=== PATIENT | female | born 1995 | race Caucasian/White ===

== ENCOUNTER 2019-06-26 10:06 | Emergency (ER) | payer MEDICAID, OTHER ==
[~2019-06-26] VITALS: Ht 180.3 cm; Wt 95.3 kg
[2019-06-26 10:10] VITALS: BP_SYST 116
[2019-06-26 12:08] VITALS: BP_SYST 116
== END 2019-06-26 12:08 | disposition home or self-care (01) ==
LOC: SED 10:06
DX: S82.001A Unspecified fracture of right patella, initial encounter for closed fracture (principal); V86.56XA Driver of dirt bike or motor/cross bike injured in nontraffic accident, initial encounter; Y93.89 Activity, other specified; Y92.89 Other specified places as the place of occurrence of the external cause; Y99.8 Other external cause status
CPT/HCPCS: 73564; 99283

== ENCOUNTER 2021-03-26 14:17 | Emergency (ER) | payer MEDICAID ==
[~2021-03-26] VITALS: Ht 172.7 cm; Wt 95.3 kg
[2021-03-26 14:38] VITALS: BP_SYST 141
[2021-03-26] MEDS ORDERED: ACET325T53 PO (16:02)
[2021-03-26] MEDS ORDERED: IBUP-1969 PO (16:02)
[2021-03-26 17:03] VITALS: BP_SYST 141
== END 2021-03-26 16:30 | disposition home or self-care (01) ==
LOC: SED 14:17
DX: M53.3 Sacrococcygeal disorders, not elsewhere classified (principal); Z79.899 Other long term (current) drug therapy
CPT/HCPCS: 72220-TC; 99283

== ENCOUNTER 2021-06-10 17:21 | Emergency (ER) | payer MEDICAID ==
[~2021-06-10] VITALS: Ht 177.8 cm; Wt 54.4 kg
[~2021-06-10 17:21] MED LIST: ACET325T53 PO; IBUP-1969 PO
[2021-06-10 17:44] VITALS: BP_SYST 120
[2021-06-10] MEDS ORDERED: IBUPROFEN 600 MG TABLET PO ONE (18:00)
[2021-06-10 18:43] VITALS: BP_SYST 120
== END 2021-06-10 18:43 | disposition home or self-care (01) ==
LOC: SED 17:21
DX: S61.213D Laceration without foreign body of left middle finger without damage to nail, subsequent encounter (principal); Z48.00 Encounter for change or removal of nonsurgical wound dressing; W45.8XXD Other foreign body or object entering through skin, subsequent encounter
CPT/HCPCS: 99282

== ENCOUNTER 2021-06-17 16:21 | Emergency (ER) | payer MEDICAID ==
[~2021-06-17] VITALS: Ht 177.8 cm; Wt 97.5 kg
[2021-06-17 16:39] VITALS: BP_SYST 128
[2021-06-17 17:14] VITALS: BP_SYST 128
== END 2021-06-17 17:14 | disposition home or self-care (01) ==
LOC: SED 16:21
DX: S61.213D Laceration without foreign body of left middle finger without damage to nail, subsequent encounter (principal); Z48.02 Encounter for removal of sutures; W45.8XXD Other foreign body or object entering through skin, subsequent encounter
CPT/HCPCS: 99281